=== PATIENT | male | born 1975 | race Caucasian/White ===

== ENCOUNTER → 2020-10-06 | Outpatient (CLI) | payer OTHER ==
[~2020-10-06] MED LIST: ALLEGRA ALLERG180 MG PO; ASPIRIN CHEWABL81 MG PO; CYMBALTA 30 MG30 MG PO; FLONASE 0.05% N16 GM; GLUCOPHAGE1000 MG PO; JANUVIA100 MG PO; NORCO 10-325 T1 EACH PO; PRINIVIL10 MG PO; PROBIOTIC 5 BI1 EACH PO; SINGULAIR10 MG PO; TESTIM5 GM TD; ZANAFLEX4 MG PO
[2020-10-06 16:42] LABS: HEMOGLOBIN 17.2 gm/dl (14.0-17.5); RED BLOOD COUNT 5.29 M/UL (4.20-5.50); WHITE BLOOD COUNT 5.6 K/UL (4.5-11.0)
[2020-10-06 17:12] LABS: BUN/CREATININE RATIO 14 (0-10)
== END ==
LOC: LAB 15:49
PROVIDERS: Orthopaedic Surgery
DX: Z01.812 Encounter for preprocedural laboratory examination (principal); M48.00 Spinal stenosis, site unspecified
CPT/HCPCS: 36415; 80048; 85027; 85610; 85730